=== PATIENT | female | born 1975 | race Caucasian/White ===

== ENCOUNTER → 2016-07-06 | Outpatient (CLI) | payer BC ==
--- NOTE | 2016-07-09 08:58 | MM ---
Reason for exam: screening (asymptomatic). Last mammogram was performed 2 years and 3 months ago. History: Took hormonal contraceptives for 5 years. Physical Findings: A clinical breast exam by your physician is recommended on an annual basis and results should be correlated with mammographic findings. MG Screening Mammo w CAD Bilateral CC and MLO view(s) were taken. Prior study comparison: April 16, 2014, left breast MG diagnostic mammo LT w CAD. January 01, 2013, CAD bilateral diagnostic mammogram. The breast tissue is extremely dense which could obscure a lesion on mammography. No significant changes when compared with prior studies. ASSESSMENT: Incomplete: need additional imaging evaluation, BI-RAD 0 RECOMMENDATION: Ultrasound of the left breast. [facility] will attempt to contact patient to return for ultrasound.
== END | disposition home or self-care (01) ==
LOC: RADMAMWWP 07:17
PROVIDERS: ATTEND Obstetrics & Gynecology
DX: Z12.31 Encounter for screening mammogram for malignant neoplasm of breast (principal)

== ENCOUNTER → 2016-07-10 | Outpatient (CLI) | payer BC ==
--- NOTE | 2016-07-11 06:53 | USB ---
Reason for exam: additional evaluation requested from abnormal screening. History: Took hormonal contraceptives for 5 years. Physical Findings: Nurse Summary: Patient complains of left breast lump upper outer quadrant x 4 years (nurse mm). US Breast Workup Limited LT Left breast ultrasound demonstrates no cystic or solid lesion seen. These results were verbally communicated with the patient and result sheet given to the patient on 07/10/16. ASSESSMENT: Benign, BI-RAD 2 RECOMMENDATION: Return to routine screening mammogram schedule for both breasts. Manage patient on a clinical basis.
== END | disposition home or self-care (01) ==
LOC: RADUSWWP 15:49
PROVIDERS: ATTEND Obstetrics & Gynecology
DX: R92.8 Other abnormal and inconclusive findings on diagnostic imaging of breast (principal)

== ENCOUNTER → 2023-12-20 | Outpatient (CLI) | payer BC ==
[2023-12-20 10:13] LABS: HCT 40.8 % (37.2-46.3); HGB 13.7 g/dL (12.0-15.0); MCHC 33.6 g/dL (32.0-37.0); MCV 92.3 FL (80.0-97.0); Mean Platelet Volume 11.5 FL (9.5-12.2); NRBC Per 100 WBC 0 X 10*3/uL (0.00-0.01); Platelet Count 233 X 10*3/uL (140-440); RBC 4.42 X 10*6/uL (4.10-5.20); RDW 12.5 % (11.5-14.5); WBC 6.78 X 10*3/uL (4.50-10.00)
[2023-12-20 10:32] LABS: ALT 20 U/L (8-44); AST 21 U/L (13-35); Albumin 4.7 g/dL (3.8-4.9); Albumin/Globulin Ratio 2.47 Ratio (1.60-3.17); Alkaline Phosphatase 45 U/L (41-126); BUN/Creat Ratio 19.62 Ratio (12.00-20.00); Blood Urea Nitrogen 15.7 mg/dL (9.0-27.0); Calcium 9.7 mg/dL (8.7-10.3); Carbon Dioxide 25.7 mmol/L (21.6-31.8); Chloride 104 mmol/L (96-109); Chol/HDL Ratio 4.49 Ratio; Globulin 1.9 g/dL (1.6-3.3); Glucose 103 mg/dL (70-110); Potassium 4.2 mmol/L (3.5-5.5); Sodium 142 mmol/L (135-145); T4, Free (Free Thyroxine) 1.11 ng/dL (0.80-1.80); Total Bilirubin 0.4 mg/dL (0.3-1.2); Total Protein 6.6 g/dL (6.2-8.2); VLDL Calculation 19.64 mg/dL (5.00-40.00)
== END | disposition home or self-care (01) ==
LOC: LABWHC1 07:40
PROVIDERS: ATTEND Obstetrics & Gynecology
DX: R63.5 Abnormal weight gain (principal); R53.83 Other fatigue
CPT/HCPCS: 36415; 80053; 80061; 83036; 84439; 84443; 85027

== ENCOUNTER → 2023-12-27 | Outpatient (CLI) | payer BC ==
--- NOTE | 2023-12-27 13:17 | MM ---
Reason for Exam: Clinical finding. Last mammogram was performed 7 year(s) and 6 month(s) ago. Patient History: Menarche at age 17. First Full-Term at age 27. Patient used Hormonal Contraceptives for 5 years. Last menstrual period: 12/22/2023 Risk Values: Araseli 5 year model risk: 0.9%. NCI Lifetime model risk: 9.5%. Prior Study Comparison: 04/16/2014 Left Diagnostic Mammogram, [facility]. 04/16/2014 Left Diagnostic Ultrasound, [facility]. 07/06/2016 Bilateral Screening Mammogram, [facility]. 07/10/2016 Left Diagnostic Ultrasound, [facility]. Tissue Density: The breasts are extremely dense, which lowers the sensitivity of mammography. Findings: Analyzed By CAD. No evidence of mass or distortion at the site of clinical concern or within either breast. No suspicious microcalcifications. Overall Assessment: Negative, BI-RAD 1 Management: Diagnostic Breast Ultrasound of the left breast. . Results were given to the patient verbally at the time of exam. Patient should continue monthly self-breast exams. A clinical breast exam by your physician is recommended on an annual basis. This exam should not preclude additional follow-up of suspicious palpable abnormalities. Note on Araseli scores and lifetime risk: 1. A Araseli score greater than 3% is considered moderate risk. If this is the case, consider specialist referral to assess eligibility for a risk reducing agent. 2. If overall lifetime risk for the development of breast cancer is 20% or higher, the patient may qualify for future screening with alternating mammogram and breast MRI. Electronically signed and approved by: Zak Sylvester M.D. Radiologis
--- NOTE | 2023-12-27 13:46 | USB ---
Reason for Exam: Clinical finding. Patient History: Menarche at age 17. First Full-Term at age 27. Patient used Hormonal Contraceptives for 5 years. Risk Values: Araseli 5 year model risk: 0.9%. NCI Lifetime model risk: 9.5%. Technique: Method: Targeted. Prior Study Comparison: 01/01/2013 Bilateral Diagnostic Mammogram, [facility]. 04/16/2014 Left Diagnostic Mammogram, [facility]. 07/06/2016 Bilateral Screening Mammogram, [facility]. 07/10/2016 Left Diagnostic Ultrasound, [facility]. Findings: The area of palpable concern of the left breast, the lower outer quadrant of the left breast, the axilla of the left breast and the retroareolar of the left breast were scanned. No solid or cystic masses are identified.. Overall Assessment: Negative, BI-RAD 1 Management: Screening Mammogram of both breasts in 1 year. A clinical breast exam by your physician is recommended on an annual basis and results should be correlated with mammographic findings. This exam should not preclude additional follow-up of suspicious palpable abnormalities. Results were given to the patient verbally at the time of exam. Electronically signed and approved by: Zak Sylvester M.D. Radiologis
== END | disposition home or self-care (01) ==
LOC: RADMAMWWP 12:51
PROVIDERS: ATTEND Obstetrics & Gynecology
DX: R92.343 Mammographic extreme density, bilateral breasts (principal); N63.22 Unspecified lump in the left breast, upper inner quadrant; N64.4 Mastodynia
CPT/HCPCS: 77062; 77066